=== PATIENT | male | born 1955 | race African-American/Black ===

== ENCOUNTER 2019-12-05 15:31 | Emergency (ER) | payer MEDICARE, MEDICAID, SELFPAY ==
[2019-12-05] VITALS (12 sets, daily range): BP systolic 116–131; BP diastolic 71–83; PULSE 65–78; RESP 13–20; TEMP 36.8; O2SAT 96–99
--- NOTE | 2019-12-05 15:35 | ECG_ITS ---
Measurements Intervals [place] Rate: 74 P: 60 MD: 186 QRS: -62 QRSD: 117 T: 47 QT: 413 QTc: 460 Interpretive Statements SINUS RHYTHM ATRIAL PREMATURE COMPLEX LOW QRS VOLTAGE IN LIMB LEADS LEFT ANTERIOR FASCICULAR BLOCK BORDERLINE T WAVE ABNORMALITY- INF/LAT LEADS BASELINE ARTIFACT- I, III ABNORMAL ECG Electronically Signed On 12-05-2019 17:32:25 CDT by Krishan Alcazar D.O.
--- NOTE | 2019-12-05 16:26 | ED.ABDPAIN ---
HPI - Abdominal Pain General Chief Complaint: Abdominal Pain Stated Complaint: abd Time Seen by Provider: 12/05/19 15:35 Source: patient and EMS History of Present Illness HPI narrative: Patient 64 years old -[place] male [facility], distention, nausea, vomiting and chills also complaining of massive diarrhea started today. Obstructive series at the [facility] showed bowel obstruction. Currently patient denying any pain. Patient denies any history of abdominal surgery. Related Data Allergies Allergy/AdvReac Type Severity Reaction Status Date / Time Penicillins Allergy Unknown Rash Verified 05/07/19 09:24 Review of Systems Review of Systems: Narrative: CONSTITUTIONAL: Denies fever, chills, or sweats. EYES: Denies visual changes, redness, or discharge. ENT: Denies rhinorrhea, congestion, sore throat, or otalgia. CARDIOVASCULAR: Denies chest pain, palpitations, or edema. RESPIRATORY: Denies cough or dyspnea. GASTROINTESTINAL: Abdominal pain, distention, nausea, vomiting, diarrhea GENITOURINARY: Denies dysuria or hematuria. SKIN: Denies rash or itching. MUSCULOSKELETAL: Denies back pain, joint pain, or myalgia. NEUROLOGIC: Denies headache, numbness, or weakness. PSYCHIATRIC: Denies anxiety or depression. [facility] Social History Social History Gender identity (if verbalized by the patient): Male Exam Narrative: Exam Narrative: General appearance: Well-developed, well-nourished, no family member at the bedside Skin: Normal color Head: Normocephalic, nontraumatic Eyes: Clear conjunctiva ENT: Oropharynx normal, ears normal, nose normal Neck: Supple, nontender Chest and respiratory: Airway patent, no respiratory distress, no accessory muscle use Heart: Regular rate/rhythm Abdomen: Large, distended, tight, quiet bowel sounds, diffusely tender with deep palpation Vascular: Normal peripheral pulses, normal capillary refill. Musculoskeletal: Normal range of motion, nontender back, right below-knee amputation Neurologic: Alert and oriented ?3, [employer] ANALYST is normal as tested, no gross motor deficit Course Course Emergency Course: Stable Reevaluation(s) Reevaluation #1: Since arrival to the emergency room until the time of signing a.m. patient constantly refusing any trial for IV access.. Ativan was given for possible anxiety or stress, patient became more calm but still declining any IV access attempt and would [facility] Patient keeps telling me that he has no symptoms, he has no abdominal pain, no nausea or vomiting and he believes that he would be okay to go back to the [facility]. Patient refused any trial to call his daughter, he told me that he fired her and she is not anymore having the power of grave cleaner and he is able to make his own decision and does not want us to give her a phone call. I did explain in length that his condition is serious, could be fatal and going back to [facility] is bad choice. Patient insist to go back. Date: 12/05/19 Time: 20:22 Vital Signs Vital signs: Vital Signs Temperature 36.8 C 12/05/19 15:35 Pulse Rate 72 12/05/19 15:35 Respiratory Rate 17 12/05/19 15:35 Blood Pressure 127/83 12/05/19 15:35 Pulse Oximetry 99 12/05/19 15:35 Temperature 36.8 C 12/05/19 15:35 Pulse Rate 68 12/05/19 17:21 Respiratory Rate 20 12/05/19 16:47 Blood Pressure 131/82 12/05/19 16:47 Pulse Oximetry 99 12/05/19 15:35 MDM - Abdominal Pain MDM Narrative Medical decision making narrative: Bowel obstruction is my concern. Labs, CT abdomen and pelvis, IV fluid started. Further plan to foll
--- NOTE | 2019-12-05 19:15 | PC.NURSE ---
Report taken from TODD Reyes. Patient reportedly denied having IV or straight cath. This RN into see patient. Explained to patient that we cannot help him feel better unless he allows us to perform treatments. Patient stated, I'm just scared. Explained to patient that I could give him medication to calm him down and then I would be happy to stay with him during the IV start that would be performed by US. Patient verbalized understanding and verbalized compliance.
[2019-12-05] MEDS: LORAZEPAM INJ 2 MG/ML VIAL 1 MG IM (19:20)
--- NOTE | 2019-12-05 20:12 | PC.NURSE ---
Spoke with patient at length about placing an US guided IV. Pt adamantly refusing to be stuck again. Explained the risks of refusing treatment and spoke with JAYLIN Yin about pt's refusal.
--- NOTE | 2019-12-05 20:29 | PC.NURSE ---
Patient refusing all medical treatment at this time. EDP placed patient for discharge.
--- NOTE | 2019-12-05 20:44 | PC.NURSE ---
genetics teacher called report to [facility]. Patient alert and oriented x4. Patient continuously refusing treatment, stated we are not allowed to call his daughter. Patient verbalized he would like to go home and does not want any treatment. Explained the risks of leaving including worsening condition and possible . Patient verbalized understanding and stated he would like to leave.
--- NOTE | 2019-12-05 23:20 | PC.NURSE ---
Called [facility] at [phone] to transport patient. [id number] Called [facility] at 2117 to transport patient. No trucks available. 2128 - Antoine updated ETA to [phone] [facility] updated ETA to 10 minutes. 2320 - [facility] here
== END 2019-12-05 23:38 | disposition left against medical advice (07) ==
PROVIDERS: Emergency Provider Emergency Medicine; PCP Family Medicine
DX: R14.0 Abdominal distension (gaseous) (principal); I49.1 Atrial premature depolarization; I44.4 Left anterior fascicular block; R94.31 Abnormal electrocardiogram [ECG] [EKG]
CPT/HCPCS: 93005; 96372; 99283; J2060

== ENCOUNTER 2020-05-14 06:56 | Emergency (ER) | payer MEDICARE, MEDICAID, SELFPAY ==
--- NOTE | 2020-05-14 07:09 | PC.NURSE ---
JAYLIN Patton used ultrasound and noted no cardiac contractility at 0709
--- NOTE | 2020-05-14 07:13 | ED_ITS ---
HPI - General Adult General Chief complaint: Cardiac Arrest/CPR Stated complaint: cardiac arrest Time Seen by Provider: 05/14/20 07:25 Limitations: clinical condition History of Present Illness HPI narrative: Patient is a 64-year-old gentleman who presents the emergency department with chief complaint of cardiac arrest. EMS was called for respiratory distress when EMS picked up the patient he was having severe shortness of breath had an episode initially where he became unresponsive but then started having some agonal respirations the patient then became unresponsive and had no pulse. ACLS protocols were initiated by EMS the patient was intubated prehospital by EMS a Nabor device was initiated to provide compressions. Patient had 3 rounds of ACLS completed prior to arrival in the emergency department and ACLS protocols were continued upon arrival to the emergency department. Patient's initial presenting rhythm was a PEA rhythm. Patient was given sodium bicarbonate as well as ACLS protocols were continued. 4 cycles of ACLS were continued in the emergency department with a asystole rhythm being the final rhythm. A bedside transthoracic ultrasound was performed as well as a substernal view was obtained of the heart which showed cardiac standstill. Given the unresponsiveness to ACLS protocols the patient was pronounced at 0709. Per half-way report the patient was Covid positive. Related Data Allergies Allergy/AdvReac Type Severity Reaction Status Date / Time Penicillins Allergy Unknown Rash Verified 05/07/19 09:24 Review of Systems Review of Systems: ROS unobtainable: Yes unobtainable due to endotracheal tube and unobtainable due to mental status PMFSH Social History Social History Gender identity (if verbalized by the patient): Male Comments Past history of COVID-19, small bowel obstruction Social history the patient is currently a resident of a half-way Exam Narrative: Exam Narrative: GENERAL: Unresponsive. HEAD: Normocephalic, atraumatic. EYES: Fixed and dilated. ENT: Nares clear, no rhinorrhea or epistaxis. Mucous membranes moist. Endotracheal tube in place NECK: Supple. CHEST: Clear to auscultation. No respiratory distress. HEART: Absent pulse absent cardiac activity. ABDOMEN: Soft, EXTREMITIES: No signs of trauma SKIN: Warm, dry, no rash. NEURO: Unresponsive PSYCH: Unresponsive. Discharge Plan Discharge Clinical Impression: Cardiac arrest, COVID-19 Patient Disposition: Condition: Follow-up/Referrals: Amy Russell MD [Primary Care Provider] - Time of Disposition: 07:09
--- NOTE | 2020-05-14 07:52 | PC.NURSE ---
0720 Talked with [facility] and at this time patient is not a candidate. 0742 Talked with Karri from the [facility] office and he told me that we could release the body.
== END 2020-05-14 08:11 | disposition expired ==
PROVIDERS: Emergency Provider Emergency Medicine; PCP Family Medicine
DX: I46.9 Cardiac arrest, cause unspecified (principal); U07.1 COVID-19
CPT/HCPCS: 92950; 99285; J0171